=== PATIENT | male | born 1980 | race Two or more races ===

== ENCOUNTER 2017-07-24 01:49 | Emergency (ER) | payer SELFPAY ==
[~2017-07-24] VITALS: Ht 182.9 cm; Wt 95.5 kg
[2017-07-24 01:50] VITALS: BP 124/82
[2017-07-24] MEDS ORDERED: LIDOCAINE-MPF 1%, 2ML ONE (02:17)
[2017-07-24] MEDS ORDERED: LIDOCAINE 1%, 10ML INFIL ONE (02:30)
== END 2017-07-24 03:03 | disposition home or self-care (01) ==
LOC: ED 02:50
DX: L02.612 Cutaneous abscess of left foot (principal)
CPT/HCPCS: 99283; J3490

== ENCOUNTER 2017-07-24 20:19 | Emergency (ER) | payer OTHER ==
[~2017-07-24] VITALS: Ht 182.9 cm; Wt 104.0 kg
[2017-07-24 20:21] VITALS: BP 115/72
== END 2017-07-24 21:52 | disposition home or self-care (01) ==
LOC: ED 21:30
DX: L03.116 Cellulitis of left lower limb (principal)
CPT/HCPCS: 99281

== ENCOUNTER 2017-09-21 22:04 | Emergency (ER) | payer SELFPAY ==
[~2017-09-21] VITALS: Ht 177.8 cm; Wt 80.0 kg
[2017-09-21] MEDS ORDERED: HYDROcodone/APAP 5/325 TABLET PO STA (22:19)
[2017-09-21] MEDS ORDERED: HYDROcodone/APAP 5/325 TABLET ONE (22:20)
[2017-09-21 22:25] VITALS: BP 136/78
[2017-09-21] MEDS ORDERED: AMOXICILLIN/CLAV 875-125MG TABLET PO STA (22:25)
[2017-09-21] MEDS ORDERED: AMOXICILLIN/CLAV 875-125MG TABLET ONE (22:28)
[2017-09-21] MEDS ORDERED: PLEASE ENTER HEIGHT AND WEIGHT MC SCH (22:30)
== END 2017-09-21 22:35 | disposition home or self-care (01) ==
LOC: ED 22:25
DX: K08.89 Other specified disorders of teeth and supporting structures (principal); F17.210 Nicotine dependence, cigarettes, uncomplicated
CPT/HCPCS: 99283; 99406

== ENCOUNTER 2017-09-29 02:17 | Emergency (ER) | payer SELFPAY ==
[~2017-09-29] VITALS: Ht 182.9 cm; Wt 100.0 kg
[2017-09-29 02:59] VITALS: BP 123/81
[2017-09-29 03:03] LABS: BASOPHILS # (AUTO) 0.03 x10^3/uL (0-0.1); BASOPHILS % (AUTO) 1 % (0-1); EOSINOPHILS # (AUTO) 0.08 x10^3/uL (0-0.4); EOSINOPHILS % (AUTO) 1 % (1-7); LYMPHOCYTES # (AUTO) 1.23 x10^3/uL (1-3.4); LYMPHOCYTES % (AUTO) 20 % (22-44); MD NO; MEAN CORPUSCULAR HEMOGLOBIN 33.7 pg (27.5-34.5); MEAN CORPUSCULAR HGB CONC 34.3 g/dL (33.2-36.2); MEAN CORPUSCULAR VOLUME 98.3 fL (81-97); MEAN PLATELET VOLUME 7.1 fL (7.4-10.4); MONOCYTES % (AUTO) 8 % (2-9); NEUTROPHILS # (AUTO) 4.43 x10^3/uL (1.8-6.8); NEUTROPHILS % (AUTO) 71 % (42-75); PLATELET COUNT 188 x10^3/uL (130-400); RED BLOOD COUNT 3.85 x10^6/uL (4.38-5.82); RED CELL DISTRIBUTION WIDTH 14.6 % (9.4-14.8)
[2017-09-29 03:13] LABS: ALANINE AMINOTRANSFERASE 17 U/L (12-78); ALBUMIN 3.4 g/dL (3.4-5.0); CREATININE 0.77 mg/dL (0.7-1.3)
[2017-09-29 03:17] LABS: ANION GAP 8 mmol/L (5-15); CALCIUM 7.9 mg/dL (8.5-10.1); CHLORIDE 113 mmol/L (98-107)
[2017-09-29 03:24] LABS: ALKALINE PHOSPHATASE 69 U/L (45-117); BILIRUBIN,TOTAL 0.2 mg/dL (0.2-1.0); TOTAL PROTEIN 6.6 g/dL (6.4-8.2)
[2017-09-29] MEDS ORDERED: MAALOX/HYOSCYAMINE/LIDOCAINE 45 ML BTL ONE (03:29)
[2017-09-29] MEDS ORDERED: MAALOX/HYOSCYAMINE/LIDOCAINE 45 ML BTL PO ONE (03:30)
[2017-09-29 03:45] LABS: MICROSCOPIC INDICATED
[2017-09-29 03:55] LABS: CULTURE INDICATED? NO
== END 2017-09-29 04:20 | disposition left against medical advice (07) ==
LOC: ED 04:03
DX: K29.20 Alcoholic gastritis without bleeding (principal); F17.200 Nicotine dependence, unspecified, uncomplicated
CPT/HCPCS: 36415; 74021; 80053; 80307; 81001; 83690; 85025; 99285

== ENCOUNTER 2017-11-13 22:36 | Emergency (ER) | payer OTHER ==
[~2017-11-13] VITALS: Ht 185.4 cm; Wt 99.7 kg
[2017-11-13 22:38] VITALS: BP 107/68
[2017-11-13] MEDS ORDERED: FAMOTIDINE 20 MG TABLET PO ONE (23:00)
[2017-11-13] MEDS ORDERED: MAALOX/HYOSCYAMINE/LIDOCAINE 45 ML BTL PO ONE (23:00)
[2017-11-13 23:07] LABS: BASOPHILS # (AUTO) 0.04 x10^3/uL (0-0.1); BASOPHILS % (AUTO) 1 % (0-1); EOSINOPHILS # (AUTO) 0.18 x10^3/uL (0-0.4); EOSINOPHILS % (AUTO) 3 % (1-7); LYMPHOCYTES # (AUTO) 1.65 x10^3/uL (1-3.4); LYMPHOCYTES % (AUTO) 27 % (22-44); MD NO; MEAN CORPUSCULAR HEMOGLOBIN 33.3 pg (27.5-34.5); MEAN CORPUSCULAR HGB CONC 34.7 g/dL (33.2-36.2); MEAN CORPUSCULAR VOLUME 95.9 fL (81-97); MEAN PLATELET VOLUME 7.9 fL (7.4-10.4); MONOCYTES % (AUTO) 8 % (2-9); NEUTROPHILS # (AUTO) 3.86 x10^3/uL (1.8-6.8); NEUTROPHILS % (AUTO) 62 % (42-75); PLATELET COUNT 231 x10^3/uL (130-400); RED BLOOD COUNT 3.87 x10^6/uL (4.38-5.82); RED CELL DISTRIBUTION WIDTH 12.9 % (9.4-14.8)
[2017-11-13] MEDS ORDERED: MAALOX/HYOSCYAMINE/LIDOCAINE 45 ML BTL ONE (23:08)
[2017-11-13] MEDS ORDERED: FAMOTIDINE 20 MG TABLET ONE (23:08)
[2017-11-13 23:16] LABS: ALANINE AMINOTRANSFERASE 18 U/L (12-78); ALBUMIN 3.5 g/dL (3.4-5.0); ANION GAP 9 mmol/L (5-15); CALCIUM 8.8 mg/dL (8.5-10.1); CHLORIDE 107 mmol/L (98-107); CREATININE 0.74 mg/dL (0.7-1.3)
[2017-11-13 23:18] LABS: ALKALINE PHOSPHATASE 76 U/L (45-117); BILIRUBIN,TOTAL 0.2 mg/dL (0.2-1.0); TOTAL PROTEIN 6.8 g/dL (6.4-8.2)
[2017-11-14 00:09] LABS: MICROSCOPIC NOT IND
[2017-11-14 00:13] LABS: CULTURE INDICATED? NO
== END 2017-11-14 00:02 | disposition home or self-care (01) ==
LOC: ED 23:12
DX: K29.00 Acute gastritis without bleeding (principal); R10.84 Generalized abdominal pain
CPT/HCPCS: 36415; 80053; 81003; 83690; 85025; 99284

== ENCOUNTER 2017-11-14 00:07 | Emergency (ER) | payer OTHER ==
[~2017-11-14] VITALS: Ht 185.4 cm; Wt 99.1 kg
[2017-11-14 00:46] VITALS: BP 142/84
== END 2017-11-14 00:48 | disposition home or self-care (01) ==
LOC: ED 00:42
DX: F32.0 Major depressive disorder, single episode, mild (principal); R10.9 Unspecified abdominal pain
CPT/HCPCS: 99283

== ENCOUNTER 2017-11-20 00:32 | Observation (INO) | payer OTHER ==
[~2017-11-20] VITALS: Ht 182.9 cm; Wt 105.0 kg
[2017-11-20] MEDS ORDERED: QUET25TA5 PO (01:05)
[2017-11-20] MEDS ORDERED: RISP0.2518 PO (01:05)
[2017-11-20] MEDS ORDERED: DIVA125T2 PO (01:05)
[2017-11-20 02:17] LABS: BASOPHILS # (AUTO) 0.04 x10^3/uL (0-0.1); BASOPHILS % (AUTO) 1 % (0-1); EOSINOPHILS # (AUTO) 0.09 x10^3/uL (0-0.4); EOSINOPHILS % (AUTO) 1 % (1-7); LYMPHOCYTES # (AUTO) 1.41 x10^3/uL (1-3.4); LYMPHOCYTES % (AUTO) 15 % (22-44); MD NO; MEAN CORPUSCULAR HGB CONC 33.8 g/dL (33.2-36.2); MEAN CORPUSCULAR VOLUME 97.5 fL (81-97); MEAN PLATELET VOLUME 7.8 fL (7.4-10.4); MONOCYTES # (AUTO) 0.65 x10^3/uL (0.2-0.8); MONOCYTES % (AUTO) 7 % (2-9); NEUTROPHILS # (AUTO) 6.98 x10^3/uL (1.8-6.8); NEUTROPHILS % (AUTO) 76 % (42-75); PLATELET COUNT 204 x10^3/uL (130-400); RED BLOOD COUNT 4.21 x10^6/uL (4.38-5.82); RED CELL DISTRIBUTION WIDTH 13.1 % (9.4-14.8)
[2017-11-20 02:31] LABS: ALBUMIN 3.7 g/dL (3.4-5.0); ANION GAP 8 mmol/L (5-15); CALCIUM 8.5 mg/dL (8.5-10.1); CHLORIDE 107 mmol/L (98-107)
[2017-11-20 02:35] LABS: ALANINE AMINOTRANSFERASE 15 U/L (12-78); ALKALINE PHOSPHATASE 79 U/L (45-117); BILIRUBIN,TOTAL 0.3 mg/dL (0.2-1.0); CREATININE 0.92 mg/dL (0.7-1.3); TOTAL PROTEIN 7.2 g/dL (6.4-8.2)
[2017-11-20 02:36] LABS: ACETAMINOPHEN < 2 mcg/mL (10-30)
[2017-11-20 03:32] LABS: AMPHETAMINE SCREEN, URINE Positive (Negative); BARBITURATE SCREEN, URINE Negative (Negative); BENZODIAZEPINE SCREEN, URINE Negative (Negative); CANNABINOID SCREEN, URINE Negative (Negative); COCAINE SCREEN, URINE Negative (Negative); METHADONE SCREEN, URINE Negative (Negative); OPIATE SCREEN, URINE Negative (Negative)
[2017-11-20] MEDS ORDERED: DOCUSATE 100 MG CAPSULE PO PRN (05:00)
[2017-11-20] MEDS ORDERED: LORazepam 2 MG/ML, 1ML IM PRN (05:00)
[2017-11-20] MEDS ORDERED: ACETAMINOPHEN 325 MG TABLET PO PRN (05:00)
[2017-11-20] MEDS: NICOTINE 7 MG/24 HR PATCH.TD24 TD SCH (11:00)
[2017-11-20] MEDS ORDERED: NICOTINE 7 MG/24 HR PATCH.TD24 ONE (11:31)
[2017-11-20] MEDS ORDERED: LORazepam 1MG TABLET ONE (16:14)
[2017-11-20] MEDS: LORazepam 1MG TABLET PO PRN (16:27)
[2017-11-20] MEDS ORDERED: LORazepam 2 MG/ML, 1ML ONE (17:36)
[2017-11-20] MEDS ORDERED: ACETAMINOPHEN 325 MG TABLET ONE (17:36)
[2017-11-20] MEDS ORDERED: EPINEPHRINE 1 MG/ML, 1ML ONE ×2 (18:05)
[2017-11-20] MEDS ORDERED: DIPHENHYDRAMINE 50 MG/ML, 1ML ONE (18:05)
[2017-11-20] MEDS ORDERED: RACEPINEPHRINE INH 2.25%, 0.5ML ONE (18:06)
[2017-11-20] MEDS ORDERED: FAMOTIDINE 20 MG/2 ML ONE (18:09)
[2017-11-20] MEDS ORDERED: methylPREDNISolone SOD SUCC 125 MG/2 ML ONE (18:09)
[2017-11-21] MEDS ORDERED: NICOTINE 7 MG/24 HR PATCH.TD24 ONE (12:08)
[2017-11-21] MEDS: NICOTINE 7 MG/24 HR PATCH.TD24 TD SCH (12:18)
[2017-11-21 16:44] VITALS: BP 119/80
[2017-11-21 19:55] VITALS: BP 116/71
[2017-11-21] MEDS: LORazepam 1MG TABLET PO PRN (21:30)
[2017-11-22 07:53] VITALS: BP 106/66
[2017-11-22] MEDS: NICOTINE 7 MG/24 HR PATCH.TD24 TD SCH (09:00)
== END 2017-11-22 11:00 ==
LOC: ED 01:31 → EDIP 02:41 → 2N 11-21 13:45
PROVIDERS: ADMIT Internal Medicine; ATTEND Internal Medicine
DX: R45.851 Suicidal ideations (principal); F31.9 Bipolar disorder, unspecified; F20.9 Schizophrenia, unspecified; F17.210 Nicotine dependence, cigarettes, uncomplicated; F15.10 Other stimulant abuse, uncomplicated; Z87.11 Personal history of peptic ulcer disease
CPT/HCPCS: 36415; 80053; 80307; 80329; 85025; 96372; 99285; G0378; J2060; G0480

== ENCOUNTER 2017-12-04 04:16 | Emergency (ER) | payer SELFPAY ==
[~2017-12-04] VITALS: Ht 182.9 cm; Wt 104.5 kg
[~2017-12-04 04:16] MED LIST: DIVA125T2 PO; QUET25TA5 PO; RISP0.2518 PO
[2017-12-04] MEDS ORDERED: ACETAMINOPHEN 325 MG TABLET ONE (04:40)
[2017-12-04] MEDS ORDERED: ACETAMINOPHEN 325 MG TABLET PO ONE (05:00)
[2017-12-04 05:29] VITALS: BP 118/70
== END 2017-12-04 05:30 | disposition home or self-care (01) ==
LOC: ED 05:24
DX: S93.601A Unspecified sprain of right foot, initial encounter (principal); S93.602A Unspecified sprain of left foot, initial encounter; F32.9 Major depressive disorder, single episode, unspecified; X58.XXXA Exposure to other specified factors, initial encounter; Y93.89 Activity, other specified; Y92.89 Other specified places as the place of occurrence of the external cause; Y99.8 Other external cause status
CPT/HCPCS: 99284

== ENCOUNTER 2017-12-05 02:47 | Emergency (ER) | payer SELFPAY ==
[~2017-12-05] VITALS: Ht 182.9 cm; Wt 127.0 kg
[2017-12-05] MEDS ORDERED: MAALOX/HYOSCYAMINE/LIDOCAINE 45 ML BTL PO ONE (03:00)
[2017-12-05] MEDS ORDERED: ONDANSETRON ODT 4 MG PO ONE (03:00)
[2017-12-05] MEDS ORDERED: MAALOX/HYOSCYAMINE/LIDOCAINE 45 ML BTL ONE (03:04)
[2017-12-05] MEDS ORDERED: ONDANSETRON ODT 4 MG ONE (03:04)
[2017-12-05 03:21] LABS: BASOPHILS # (AUTO) 0.03 x10^3/uL (0-0.1); BASOPHILS % (AUTO) 1 % (0-1); EOSINOPHILS # (AUTO) 0.18 x10^3/uL (0-0.4); EOSINOPHILS % (AUTO) 3 % (1-7); LYMPHOCYTES # (AUTO) 1.53 x10^3/uL (1-3.4); LYMPHOCYTES % (AUTO) 27 % (22-44); MD NO; MEAN CORPUSCULAR HEMOGLOBIN 33.2 pg (27.5-34.5); MEAN CORPUSCULAR HGB CONC 34.4 g/dL (33.2-36.2); MEAN CORPUSCULAR VOLUME 96.4 fL (81-97); MEAN PLATELET VOLUME 7.5 fL (7.4-10.4); MONOCYTES # (AUTO) 0.53 x10^3/uL (0.2-0.8); MONOCYTES % (AUTO) 9 % (2-9); NEUTROPHILS # (AUTO) 3.42 x10^3/uL (1.8-6.8); NEUTROPHILS % (AUTO) 60 % (42-75); PLATELET COUNT 217 x10^3/uL (130-400); RED BLOOD COUNT 3.84 x10^6/uL (4.38-5.82); RED CELL DISTRIBUTION WIDTH 12.9 % (9.4-14.8)
[2017-12-05 03:32] LABS: ALBUMIN 3.6 g/dL (3.4-5.0); ANION GAP 11 mmol/L (5-15); CALCIUM 8.4 mg/dL (8.5-10.1); CHLORIDE 108 mmol/L (98-107)
[2017-12-05 03:35] LABS: ALANINE AMINOTRANSFERASE 17 U/L (12-78); ALKALINE PHOSPHATASE 89 U/L (45-117); BILIRUBIN,TOTAL 0.3 mg/dL (0.2-1.0); TOTAL PROTEIN 7.2 g/dL (6.4-8.2)
[2017-12-05 04:16] VITALS: BP 102/66
== END 2017-12-05 04:27 | disposition home or self-care (01) ==
LOC: ED 02:55
DX: R10.12 Left upper quadrant pain (principal); R11.2 Nausea with vomiting, unspecified
CPT/HCPCS: 36415; 76700; 80053; 83690; 85025; 99285; Q0162

== ENCOUNTER 2017-12-06 17:36 | Emergency (ER) | payer OTHER ==
[~2017-12-06] VITALS: Ht 182.9 cm; Wt 100.0 kg
[2017-12-06 17:44] VITALS: BP 114/77
== END 2017-12-06 18:44 | disposition home or self-care (01) ==
LOC: ED 18:35
DX: M72.2 Plantar fascial fibromatosis (principal); B35.3 Tinea pedis; F17.200 Nicotine dependence, unspecified, uncomplicated; F32.9 Major depressive disorder, single episode, unspecified
CPT/HCPCS: 99283

== ENCOUNTER 2018-01-28 06:05 | Emergency (ER) | payer SELFPAY ==
[~2018-01-28] VITALS: Ht 182.9 cm; Wt 99.1 kg
[2018-01-28 07:01] LABS: BASOPHILS # (AUTO) 0.06 x10^3/uL (0-0.1); BASOPHILS % (AUTO) 1 % (0-1); EOSINOPHILS # (AUTO) 0.08 x10^3/uL (0-0.4); EOSINOPHILS % (AUTO) 1 % (1-7); LYMPHOCYTES # (AUTO) 1.61 x10^3/uL (1-3.4); LYMPHOCYTES % (AUTO) 28 % (22-44); MD NO; MEAN CORPUSCULAR HEMOGLOBIN 32.9 pg (27.5-34.5); MEAN CORPUSCULAR HGB CONC 34.4 g/dL (33.2-36.2); MEAN CORPUSCULAR VOLUME 95.6 fL (81-97); MEAN PLATELET VOLUME 7.3 fL (7.4-10.4); MONOCYTES % (AUTO) 10 % (2-9); NEUTROPHILS % (AUTO) 60 % (42-75); PLATELET COUNT 238 x10^3/uL (130-400); RED BLOOD COUNT 4.22 x10^6/uL (4.38-5.82); RED CELL DISTRIBUTION WIDTH 13.6 % (9.4-14.8)
[2018-01-28] MEDS ORDERED: NALOXONE 0.4 MG/ML, 1ML ONE (07:03)
[2018-01-28 07:12] LABS: ALANINE AMINOTRANSFERASE 24 U/L (12-78); ALBUMIN 3.8 g/dL (3.4-5.0); ANION GAP 10 mmol/L (5-15); CALCIUM 8.6 mg/dL (8.5-10.1); CHLORIDE 107 mmol/L (98-107); CREATININE 0.91 mg/dL (0.7-1.3)
[2018-01-28 07:15] LABS: ALKALINE PHOSPHATASE 102 U/L (45-117); BILIRUBIN,TOTAL 0.3 mg/dL (0.2-1.0); TOTAL PROTEIN 7.4 g/dL (6.4-8.2)
[2018-01-28 07:56] VITALS: BP 138/82
== END 2018-01-28 07:57 | disposition home or self-care (01) ==
LOC: ED 06:56
DX: G89.29 Other chronic pain (principal); R10.32 Left lower quadrant pain
CPT/HCPCS: 36415; 74021; 80053; 83690; 85025; 99284

== ENCOUNTER 2018-02-18 02:59 | Emergency (ER) | payer SELFPAY ==
[~2018-02-18] VITALS: Ht 182.9 cm; Wt 98.6 kg
--- NOTE | 2018-02-18 03:55 | NUR ---
pt to room from lobby
--- NOTE | 2018-02-18 03:57 | NUR ---
PT STATES ABD PAIN LLQx2 WEEKS. STATES DARK STOOL, BUT NO BRIGHT RED BLOOD NOTED. STATES HX OF ULCERS AND ABD SURGERY IN PAST FOR ULCERS. DENIES ANY HYPOTENSIVE SYMPTOMS. MONITORING APPLIED. VSS. CALL LIGHT WITHIN REACH. PT REPROMPTED ON UA. STATES UNABLE TO UA.
[2018-02-18] MEDS ORDERED: FAMOTIDINE 20 MG/2 ML ONE (04:55)
[2018-02-18] MEDS ORDERED: ONDANSETRON 2MG/ML, 2ML ONE (04:55)
[2018-02-18] MEDS ORDERED: ONDANSETRON 2MG/ML, 2ML IVPush ONE (05:00)
[2018-02-18] MEDS ORDERED: FAMOTIDINE 20 MG/2 ML IVP ONE (05:00)
[2018-02-18] MEDS ORDERED: SODIUM CHLORIDE FLUSH 10ML SYR IVF ONE (05:00)
--- NOTE | 2018-02-18 05:15 | NUR ---
PT IV STARTED AND OFFERED MEDICATIONS. PT REFUSES ZOFRAN AND PEPCID. STATES "GIVE ME PAIN MEDICINE" FURTHER INVESTIGATION PT STATES HE WOULD LIKE DILAUDID. AWARE. AWAITING NEW ORDERS. VSS. CALL LIGHT WITHIN REACH.
[2018-02-18 05:22] LABS: BASOPHILS # (AUTO) 0.09 x10^3/uL (0-0.1); BASOPHILS % (AUTO) 1 % (0-1); EOSINOPHILS # (AUTO) 0.14 x10^3/uL (0-0.4); EOSINOPHILS % (AUTO) 2 % (1-7); LYMPHOCYTES # (AUTO) 1.71 x10^3/uL (1-3.4); LYMPHOCYTES % (AUTO) 23 % (22-44); MD NO; MEAN CORPUSCULAR HEMOGLOBIN 33.1 pg (27.5-34.5); MEAN CORPUSCULAR HGB CONC 34.3 g/dL (33.2-36.2); MEAN CORPUSCULAR VOLUME 96.6 fL (81-97); MEAN PLATELET VOLUME 7.1 fL (7.4-10.4); MONOCYTES # (AUTO) 0.69 x10^3/uL (0.2-0.8); MONOCYTES % (AUTO) 9 % (2-9); NEUTROPHILS # (AUTO) 4.87 x10^3/uL (1.8-6.8); NEUTROPHILS % (AUTO) 65 % (42-75); PLATELET COUNT 260 x10^3/uL (130-400); RED BLOOD COUNT 4.44 x10^6/uL (4.38-5.82); RED CELL DISTRIBUTION WIDTH 13.9 % (9.4-14.8)
[2018-02-18 05:34] LABS: ALBUMIN 3.8 g/dL (3.4-5.0); ANION GAP 10 mmol/L (5-15); CALCIUM 8.5 mg/dL (8.5-10.1); CHLORIDE 107 mmol/L (98-107); CREATININE 0.87 mg/dL (0.7-1.3)
[2018-02-18 05:45] LABS: ALANINE AMINOTRANSFERASE 32 U/L (12-78); ALKALINE PHOSPHATASE 99 U/L (45-117); BILIRUBIN,TOTAL 0.4 mg/dL (0.2-1.0); TOTAL PROTEIN 7.3 g/dL (6.4-8.2)
--- NOTE | 2018-02-18 05:53 | NUR ---
PT TO CT.
[2018-02-18] MEDS ORDERED: OMNIPAQUE 350 MG/ML, 100ML BOTTLE ONE (05:57)
--- NOTE | 2018-02-18 06:16 | NUR ---
PT REFUSING TO GIVE UA. PT DOES NOT WANT VITALS EQUIPMENT ON HIM. PT NOT ALLOWING STAFF TO GAIN FRESH VITALS. Addendum: 02/18/18 at 0616 by IRIS PT REFUSING TO GIVE UA. PT DOES NOT WANT VITALS EQUIPMENT ON HIM. PT NOT ALLOWING STAFF TO GAIN FRESH VITALS. AWARE.
--- NOTE | 2018-02-18 06:59 | NUR ---
Recieved bedside report from [facility]. All questions answered. NADN. Pt has call light within reach. Meal tray ordered and will be given to pt when it arrives. No needs expressed at this time. Pt refusing to have vital signs checked at this time. Pt refusing urine sample at this time.
[2018-02-18 08:01] VITALS: BP 117/75
--- NOTE | 2018-02-18 08:01 | NUR ---
Patient given discharge instructions and they have confirmed that they understand the instructions. Patient ambulatory with steady gait. PT LEFT WITH ALL PERSONAL BELONGINGS, DISCHARGE PAPERWORK, AND PRESCRIPTIONS.
== END 2018-02-18 08:05 | disposition home or self-care (01) ==
LOC: ED 07:28
DX: K29.00 Acute gastritis without bleeding (principal); Z88.5 Allergy status to narcotic agent
CPT/HCPCS: 36415; 74177; 80053; 83690; 85025; 99284; Q9967